=== PATIENT | male | born 1995 | race Two or more races ===

== ENCOUNTER 2018-04-24 22:35 | Emergency (ER) | payer SELFPAY ==
--- NOTE | 2018-04-24 22:45 | ER Report ---
History and Physical Time Seen By MD: 22:45 HPI/ROS CHIEF COMPLAINT: right shoulder dislocation HISTORY OF PRESENT ILLNESS: This is a 23 year old male. He was goofing around with his friends, lifted his right arm up and shoulder went out of place. Has had this many times with the left shoulder, but never the right. Has pain with any movement and looks deformed. Has normal sensation in the hand and arm. Last oral intake about 3.5 hours ago. Allergies: Coded Allergies: No Known Drug Allergies (Unverified , 04/24/18) Home Meds No Active Prescriptions or Reported Meds Reviewed Nurses Notes: Yes Hx Smoking: Yes (05/17PP) Hx Substance Use Disorder: No Hx Alcohol Use: No Constitutional Vital Sign - Last 24 Hours 04/24/18 04/24/18 04/24/18 04/24/18 22:35 22:40 22:42 22:45 Pulse ? B/P (MAP) 136/92 (107) Pulse Ox 98 04/24/18 04/24/18 04/24/18 04/24/18 22:50 22:55 22:57 23:00 Temp 97.9 Pulse 86 92 92 92 Resp 18 B/P (MAP) 136/92 ???/??? (4505) Pulse Ox 99 96 95 97 O2 Delivery Room Air 04/24/18 04/24/18 04/24/18 04/24/18 23:05 23:10 23:15 23:19 Pulse 90 91 91 B/P (MAP) 131/98 (109) Pulse Ox 95 95 94 04/24/18 04/24/18 04/24/18 04/24/18 23:20 23:25 23:30 23:35 Pulse 87 90 79 85 Resp 25 33 15 B/P (MAP) 134/96 (109) 133/81 (98) 134/91 (105) Pulse Ox 92 99 98 98 04/24/18 04/24/18 04/24/18 04/24/18 23:40 23:45 23:50 23:55 Pulse 88 91 82 85 Resp 21 35 29 B/P (MAP) 129/89 (102) 133/92 (106) 130/81 (97) 133/88 (103) Pulse Ox 93 93 92 95 12/13/18 04/25/18 04/25/18 04/25/18 00:00 00:05 00:10 00:15 Pulse 81 90 83 82 Resp 14 25 10 B/P (MAP) 124/83 (97) Pulse Ox 92 93 94 Intake and Output 04/24/18 04/24/18 04/25/18 15:00 23:00 07:00 Intake Total 1000 ml Balance 1000 ml Physical Exam General: Alert, but having pain. Musculoskeletal: has depressed shoulder, pain with motion, appear dislocated. Skin: No skin breakdown. Neuro: normal motor and sensation. Cardio: normal cap refill and pulses. Medical Decision Making EKG/Imaging Imaging RIGHT SHOULDER: Indication: Injury. Technique: 3 views were obtained. Comparison: None available. Findings: There is anterior, subcoracoid dislocation of the humeral head. The internally rotated view suggests the presence of a tiny chip fracture adjacent to the humeral head. There is normal mineralization. The skeletal and soft tissue structures are otherwise unremarkable. IMPRESSION: Anterior humeral dislocation. Possible chip fracture adjacent to the humeral head. Report Dictated By: Evert Walls MD at 04/24/2018 11:26 PM INDICATION: shoulder dislocation s/p relocated EXAM DATE: 04/24/2018 11:35 PM COMPARISON: Same-day radiographs. FINDINGS: 3 views of the right shoulder. Mineralization is normal. Glenohumeral alignment now appears appropriate. Possible small chip fracture seen on the prior examination is not well demonstrated. Soft tissues are unremarkable. IMPRESSION: 1. Normal post reduction alignment of the right glenohumeral joint. 2. Possible small chip fracture seen on the prior examination is not well demonstrated but may be obscured. Report Dictated By: Gabriele Whitley MD at 04/25/2018 12:15 AM ED Course/Re-evaluation ED Course Improved after shoulder relocation. Fentanyl and Propofol for pain and sedation. Tolerated well. Recommended to see orthopedic surgery for follow-up. See instructions below. Re-evaluation Procedure: Procedural sedation. A pre-sedation evaluation was completed on the patient. Patient is an appropriate candidate for procedural sedation. The risks of the sedation were discussed with the patient. A time out was completed. The patient was reevaluated immediately prior to initiation of sedation. The patient was sedated with propofol and fentanyl. The patient was monitored with continuous pulse oximetry and satellite project site monitor. There were no complications and no significant hypoxemia. I remained at the bedside for the sedation. The total time I spent in the procedural sedation was 20 minutes. Post sedation evaluation: Patient was alert and cooperative, hemodynamically stable with appropriate respiratory status, temperature and pain control without ongoing nausea and vomiting. Procedure: Right shoulder dislocation reduction: The shoulder was reduced in the usual fashion without complications. Post reduction the patient's neurovascular exam is normal. Post reduction x-ray demonstrates reduction of the joint to the anatomic position. The procedure was performed by myself. Decision to Disposition Date: Apr 24, 2018 Decision to Disposition Time: 23:45 Depart Departure Latest Vital Signs Vital Signs Date Time Temp Pulse Resp B/P (MAP) Pulse Ox O2 Delivery O2 Flow Rate FiO2 04/25/18 00:15 82 10 94 04/25/18 00:00 124/83 (97) 04/24/18 22:57 97.9 Room Air Impression: Primary Impression: Shoulder dislocation Condition: Improved Disposition: HOME OR SELF-CARE Referrals: PK DRAPER MD New Scripts No Active Prescriptions or Reported Meds Patient Instructions: Shoulder Dislocation (ED) Additional Instructions: Ibuprofen 200mg over the counter tablets, take 4 tablets 3-4 times a day with food. Apply ice 15 minutes every 1-2 hours while awake. Wear the sling for the next couple of days to rest the shoulder. No overhead activity with your right arm. Call [facility] tomorrow morning to schedule a follow-up appointment with them. Problem Qualifiers Primary Impression: Shoulder dislocation Encounter type: initial encounter Laterality: right Qualified Codes: S43.004A - Unspecified dislocation of right shoulder joint, initial encounter RODERICK HOROWITZ MD Apr 24, 2018 22:45
[2018-04-24] MEDS ORDERED: fentaNYL CITR 100 MCG/2 ML AMP IVP ONE ×2 (22:50→23:10)
[2018-04-24] MEDS ORDERED: PROPOFOL EMUL 10MG/ML 20 ML VL IVP ONE (23:10)
--- NOTE | 2018-04-24 23:32 | RADIOLOGY IMAGING REPORT ---
FACILITY: [facility] PATIENT NAME: Fabio Mcfarland : 1995 MR: [id number] V: [id number] EXAM DATE: ORDERING PHYSICIAN: RODERICK HOROWITZ TECHNOLOGIST: Location: [facility] Patient: Fabio Mcfarland : 1995 Visit/Account:[id number] Date of Sevice: 04/24/2018 RIGHT SHOULDER: Indication: Injury. Technique: 3 views were obtained. Comparison: None available. Findings: There is anterior, subcoracoid dislocation of the humeral head. The internally rotated view suggests the presence of a tiny chip fracture adjacent to the humeral head. There is normal minerali zation. The skeletal and soft tissue structures are otherwise unremarkable. IMPRESSION: Anterior humeral dislocation. Possible chip fracture adjacent to the humeral head. Report Dictated By: Evert Walls MD at 04/24/2018 11:26 PM Report E-Signed By: Evert Walls MD at 04/24/2018 11:29 PM [id number]
[2018-04-24] MEDS ORDERED: NS(*) 0.9% 1000 ML BAG 1,000 ML IV ONE (23:45)
[2018-04-25] VITALS: BP 124/83
--- NOTE | 2018-04-25 00:21 | RADIOLOGY IMAGING REPORT ---
FACILITY: [facility] PATIENT NAME: Fabio Mcfarland : 1995 MR: [id number] V: [id number] EXAM DATE: ORDERING PHYSICIAN: RODERICK HOROWITZ TECHNOLOGIST: Location: [facility] Patient: Fabio Mcfarland : 1995 Visit/Account:[id number] Date of Sevice: 04/24/2018 INDICATION: shoulder dislocation s/p relocated EXAM DATE: 04/24/2018 11:35 PM COMPARISON: Same-day radiographs. FINDINGS: 3 views of the right shoulder. Mineralization is normal. Glenohumeral alignment now appears appropri ate. Possible small chip fracture seen on the prior examination is not well demonstrated. Soft tiss ues are unremarkable. IMPRESSION: 1. Normal post reduction alignment of the right glenohumeral joint. 2. Possible small chip fracture seen on the prior examination is not well demonstrated but may be ob scured. Report Dictated By: Gabriele Whitley MD at 04/25/2018 12:15 AM Report E-Signed By: Gabriele Whitley MD at 04/25/2018 12:17 AM [id number]
== END 2018-04-25 00:26 | disposition home or self-care (01) ==
LOC: ER 23:05
DX: S43.004A Unspecified dislocation of right shoulder joint, initial encounter (principal)
CPT/HCPCS: 23650; 73030; 96374; 99152; 99285; A4565; J2704; J3010; J7030